=== PATIENT | female | born 2000 | race African-American/Black ===

== ENCOUNTER 2019-07-08 23:33 | Emergency (ER) | payer MEDICAID ==
[~2019-07-08] VITALS: Ht 162.6 cm; Wt 114.0 kg
[2019-07-09 00:34] VITALS: BP 107/62
== END 2019-07-09 06:16 | disposition left against medical advice (07) ==
LOC: ER 23:33
DX: R07.0 Pain in throat (principal); J02.9 Acute pharyngitis, unspecified; Z53.21 Procedure and treatment not carried out due to patient leaving prior to being seen by health care provider